=== PATIENT | male | born 1990 | race Two or more races ===

== ENCOUNTER → 2025-04-22 | Outpatient (CLI) | payer BC, SELFPAY ==
--- NOTE | 2025-04-22 10:19 | XR_ITS ---
Examination: Lumbar spine, 5 views Technique: Lumbar spine AP, lateral, coned lateral lower lumbar spine, bilateral obliques 5 views Exam date and time: April 22, 2025, 1032 hours INDICATIONS: Low back pain radiating down both legs 7 months FINDINGS: Adequate bone density. No significant facet arthropathy Satisfactory alignment lumbar vertebral bodies on the lateral view Mild to moderate disc narrowing L5-S1 No spondylolisthesis IMPRESSION: Mild to moderate disc narrowing L5-S1
== END | disposition home or self-care (01) ==
PROVIDERS: Referring Provider Chiropractor; Visit Provider Chiropractor
DX: M51.370 Other intervertebral disc degeneration, lumbosacral region with discogenic back pain only (principal)
CPT/HCPCS: 72110